=== PATIENT | male | born 1970 | race Caucasian/White ===

== ENCOUNTER 2017-07-26 10:51 | Emergency (ER) | payer OTHER ==
[~2017-07-26] VITALS: Ht 177.8 cm; Wt 81.6 kg
[2017-07-26 10:51] VITALS: BP_SYST 136
[2017-07-26] MEDS ORDERED: GASTROGRAFIN 120 ML ONE (11:53)
[2017-07-26 13:57] VITALS: BP_SYST 121
== END 2017-07-26 13:44 | disposition home or self-care (01) ==
LOC: SED 10:51
DX: I10 Essential (primary) hypertension (principal); Z86.73 Personal history of transient ischemic attack (TIA), and cerebral infarction without residual deficits; Z86.718 Personal history of other venous thrombosis and embolism
CPT/HCPCS: 43760; 74240; 99284; Q9963